=== PATIENT | female | born 1980 | race Two or more races ===

== ENCOUNTER 2018-10-05 13:36 | Emergency (ER) | payer OTHER ==
[~2018-10-05] VITALS: Ht 160 cm; Wt 61.2 kg
[2018-10-05 14:40] VITALS: BP 121/70
[2018-10-06 08:29] LABS: Hepatitis B Surface Antibody Negative
[2018-10-06 13:04] LABS: Hepatitis B Surface Antigen Negative (Negative)
== END 2018-10-05 16:21 | disposition home or self-care (01) ==
LOC: ER 13:36
DX: R42 Dizziness and giddiness (principal); R06.02 Shortness of breath; F41.9 Anxiety disorder, unspecified; Z77.098 Contact with and (suspected) exposure to other hazardous, chiefly nonmedicinal, chemicals; Z88.1 Allergy status to other antibiotic agents; X58.XXXA Exposure to other specified factors, initial encounter; Y93.89 Activity, other specified; Y92.69 Other specified industrial and construction area as the place of occurrence of the external cause; Y99.8 Other external cause status
CPT/HCPCS: 36415; 71046; 86703; 86706; 86803; 87340

== ENCOUNTER → 2018-10-11 | Outpatient (CLI) | payer OTHER | END | disposition home or self-care (01) | LOC: LAB 15:16 | PROVIDERS: ATTEND Nurse Practitioner | DX: Z77.098 Contact with and (suspected) exposure to other hazardous, chiefly nonmedicinal, chemicals (principal) | CPT/HCPCS: 87177 ==